=== PATIENT | female | born 1955 | race American Indian/Alaskan Native ===

== ENCOUNTER 2021-10-04 08:03 | Day surgery (SDC) | payer BC ==
[~2021-10-04 08:03] MED LIST: SODIUM CHLORIDE 0.9% 1000 ML 1,000 ML IV SCH
--- NOTE | 2021-10-04 09:42 | Anesthesia Consultation ---
Anesthesia Consult and Med Hx Date of service: 10/04/21 - Airway Anesthetic Teeth Evaluation: Good, Partials (lower incisors) ROM Head & Neck: Adequate Mental/Hyoid Distance: Adequate Mallampati Class: Class III Intubation Access Assessment: Possibly Difficult - Pre-Operative Health Status ASA Pre-Surgery Classification: ASA3 Proposed Anesthetic Plan: MAC - Pulmonary Hx Smoking: No Hx Respiratory Symptoms: No - Cardiovascular System Hx Hypertension: Yes (took anithypertensives this morning) Hx Coronary Artery Disease: Yes Hx Percutaneous Transluminal Coronary Angioplasty (PTCA): Yes (x3; most recent 2yrs ago; last dose ASA/plavix 12/6 PM) - Central Nervous System CVA: No - Endocrine Hx Renal Disease: No Hx Liver Disease: No Hx Insulin Dependent Diabetes: Yes - Other Systems Hx Obesity: Yes (BMI 43) - Additional Comments Anesthesia Medical History Comments: No hx anesthetic complications. GI MD made aware that anticoagulants not held prior to procedure.
--- NOTE | 2021-10-04 09:43 | Anesthesia Day of Surgery ---
Anesthesia Day of Surgery - Day of Surgery Patient Examined: Yes Patient H&P Reviewed: Yes Patient is NPO: Yes Cardiac Clearance: Yes
[2021-10-04] MEDS ORDERED: propofoL 200 MG/20 ML VIAL IV ONE ×2 (10:19→11:19)
[2021-10-04] MEDS ORDERED: LIDOCAINE MPF (2%) 20 MG/1 ML VIAL 5 ML ONE (10:56)
[2021-10-04] MEDS ORDERED: PHENYLEPHRINE/NS 1,000 MCG/10 ML SYRINGE (OR USE) IV ONE (11:24)
--- NOTE | 2021-10-04 11:49 | Short Stay Summary ---
Short Stay Documentation Date of service: 10/04/21 Narrative H&P: The patient presents for her first screening colonoscopy. Average risk profile. - History Past Medical History: CAD, diabetes, hypertension Past Surgical History: PTCA Social history: no significant social history, lives with family - Allergies and Medications Current Medications: Allergies Penicillins Allergy (Verified 10/04/21 11:04) Unknown Home Medications Medication Instructions Recorded Confirmed Last Taken Type Amlodipine Besylate 5 mg PO DAILY 10/03/21 10/03/21 Unknown History Aspirin 81 mg PO DAILY 10/03/21 10/03/21 Unknown History Atorvastatin Calcium 80 mg PO DAILY 10/03/21 10/03/21 Unknown History Clopidogrel Bisulfate 75 mg PO DAILY 10/03/21 10/03/21 Unknown History Furosemide [Lasix] 40 mg PO DAILY 10/03/21 10/03/21 Unknown History Gabapentin 300 mg PO TID 10/03/21 10/03/21 Unknown History Meloxicam 15 mg PO DAILY 10/03/21 10/03/21 Unknown History Metoprolol Tartrate 50 mg PO BID 10/03/21 10/03/21 Unknown History Novolin 70-30 100 Unit/ml Vial 100 unit SQ 10/03/21 Unknown History Potassium Chloride 20 meq PO DAILY 10/03/21 10/03/21 Unknown History Valsartan 160 mg PO DAILY 10/03/21 10/03/21 Unknown History Active Medications Sodium Chloride (Nacl 0.9% 1000 Ml) 1,000 mls @ 50 mls/hr IV DIRECT SPIKE - Physical exam General appearance: no acute distress, well-nourished, obese Integumentary: no rash, no growths, no abnormal pigmentation HEENT: Atraumatic, PERRLA, EOMI, Mucous membr. moist/pink Lungs: Clear to auscultation, Normal air movement Breasts: deferred Heart: Regular rate, Normal S1, Normal S2, No murmurs Gastrointestinal: normoactive bowel sounds, no tenderness, no distended, no masses, no guarding, no organomegaly, obese Female Genitourinary: deferred Rectal Exam: normal exam-external/orifice, no nodular, no mass Extremities: no ischemia, pulses intact, pulses symmetrical, No edema, normal temperature, normal color, Full ROM Neurological: Normal gait, Normal speech, Strength at 5/5 X4 ext, Normal tone, Sensation intact, Cranial nerves 3-12 NL - Brief post op/procedure progress note Date of procedure: 10/04/21 Findings: see dictation Estimated blood loss: none Pathology: list (1. Four ascending colon polyps 2. sigmoid polyp) Specimen disposition: to lab Condition: stable - Disposition Condition at discharge: Good Disposition: 01 HOME / SELF CARE / HOMELESS - Discharge Diagnoses (1) Colon cancer screening Status: Acute Short Stay Discharge Plan Activity: other (No driving for 24 hours. Hold Plavix for 5 days. Resume ASA therapy.) Weight Bearing Status: Weight Bear as Tolerated Diet: diabetic Follow up with: CADENCE GAITAN MD [Primary Care Provider] - 7 Days
--- NOTE | 2021-10-04 11:53 | Operative Report ---
Operative Report Operative Report: Date of procedure: 10/04/2021 Preprocedure diagnosis: Colon cancer screening, no prior studies. Post procedure diagnosis: 4 ascending colon polyps. 1 sigmoid colon polyp. Few diverticula of the sigmoid colon. Procedure: Colonoscopy to the cecum with hot snare polypectomy x5 Endoscopist: Dr. Tamez Anesthesia: Monitored anesthesia care per anesthesia department Estimated blood loss: 0 Medications: Monitored anesthesia care. See separate report by anesthesia for details. After careful discussion of the nature and purpose of the procedure as well as details of the technique risks benefits and alternatives the patient gave consent. Please see recent history and physical from the office. The patient was placed in the left lateral decubitus position and medicated per anesthesia. A rectal exam was performed sphincter tone was normal there were no masses palpable. The [employer] 570 scope was passed transanally and advanced under continuous direct vision without difficulty to the cecum. The colon was well prepared. The cecum was normal. The ascending colon revealed 4 polyps 3 of which were 9 to 10 mm in size and semipedunculated. The fourth polyp was 5 mm in size and semipedunculated. All polyps were carefully removed with the snare and electrocautery and retrieved by suction. No bleeding was encountered. The transverse colon, and descending colon were normal. There was a 6 mm semipedunculated polyp in the sigmoid colon which was removed with snare electrocautery and retrieved by suction. There were a few tiny diverticula noted in the sigmoid colon. The rectum was normal on forward and retroflexed views. The procedure was well-tolerated overall and the patient was observed in recovery. Conclusions: 4 ascending colon polyps and one sigmoid polyp. Few diverticula in the sigmoid colon. Plan: Await pathology. Repeat colonoscopy in 1 to 3 years depending upon the pathology report. With hold Plavix for additional 5 days. Restart aspirin therapy today. Signed electronically: Slim Tamez M.D.
--- NOTE | 2021-10-04 13:42 | Post Anesthesia Evaluation ---
- Post Anesthesia Evaluation Patient Participated: Yes Airway Patent: Yes Stable Respiratory Function: Yes Nausea/Vomiting: No Temp > 96.8F: Yes Pain Manageable: Yes Adequeate Hydration: Yes Anesthesia Complications: No
[2021-10-04 17:10] VITALS: BP 109/79
== END 2021-10-04 08:04 | disposition home or self-care (01) ==
LOC: GIO 08:03
PROVIDERS: ATTEND Internal Medicine Gastroenterology
DX: Z12.11 Encounter for screening for malignant neoplasm of colon (principal); K57.30 Diverticulosis of large intestine without perforation or abscess without bleeding; D12.5 Benign neoplasm of sigmoid colon; D12.2 Benign neoplasm of ascending colon; K63.89 Other specified diseases of intestine; I10 Essential (primary) hypertension; I25.10 Atherosclerotic heart disease of native coronary artery without angina pectoris; E11.9 Type 2 diabetes mellitus without complications; E66.9 Obesity, unspecified; Z79.82 Long term (current) use of aspirin; Z79.899 Other long term (current) drug therapy; Z98.890 Other specified postprocedural states; Z88.0 Allergy status to penicillin; Z68.41 Body mass index [BMI] 40.0-44.9, adult
CPT/HCPCS: 45385; 82962; 88305; J2370; J2704; J3490; J7030; J7120; Q0162